=== PATIENT | male | born 1940 | race Caucasian/White ===

== ENCOUNTER 2020-08-06 11:11 | Emergency (ER) | payer MEDICARE, BC ==
[2020-08-06] MEDS ORDERED: Ondansetron PF 4 MG/2 ML Vial ONE (11:36)
== END 2020-08-06 13:07 | disposition home or self-care (01) ==
LOC: ERS 11:11
DX: T18.8XXA Foreign body in other parts of alimentary tract, initial encounter (principal); E78.5 Hyperlipidemia, unspecified; I10 Essential (primary) hypertension; Z79.82 Long term (current) use of aspirin; Z79.899 Other long term (current) drug therapy
CPT/HCPCS: 96374; 96375; 99283; J1610; J2405

== ENCOUNTER 2022-04-07 05:23 | Inpatient (IN) | payer MEDICARE, BC ==
[2022-04-07] MEDS ORDERED: Piperacillin/Tazobactam 3.375 GM VIAL ONE (07:05)
[2022-04-07] MEDS ORDERED: Morphine 2 MG/ML VIAL SLOW IVP PRN (10:44)
[2022-04-07] MEDS ORDERED: hydrALAZINE 20 MG/ML VIAL SLOW IVP PRN (10:44)
[2022-04-07] MEDS ORDERED: Sodium Chloride 0.9% 1,000 ML IV SCH ×3 (10:45→11:00)
[2022-04-07 13:50] LABS: SARS-CoV-2 NAA Rapid Test Not Detected (NotDetected)
[2022-04-07 17:32] VITALS: BMI 28.2
[2022-04-07] MEDS: Sodium Chloride 0.9% 1,000 ML IV SCH ×2 (20:14→21:24)
[2022-04-07] MEDS: Piperacillin/Tazobactam 3.375 GM in Sodium Chloride 0.9% 100 ML IVPB SCH ×2 (20:14→21:25)
[2022-04-07] MEDS ORDERED: Enoxaparin Sodium 40 MG/0.4 ML SYRINGE SC SCH (21:00)
[2022-04-08] MEDS: Sodium Chloride 0.9% 1,000 ML IV SCH ×2 (02:34→08:57)
[2022-04-08] MEDS: Piperacillin/Tazobactam 3.375 GM in Sodium Chloride 0.9% 100 ML IVPB SCH (03:44)
[2022-04-08 06:11] VITALS: TEMP 98
[2022-04-08 06:33] LABS: #Eosinphils 0.6 thou/uL (0.0-0.7); #Lymphocytes 2.2 thou/uL (1.20-3.40); #Monocytes 0.6 thou/uL (0.11-0.59); #Neutrophils 4.1 thou/uL (1.40-6.50); %Basophils 0.3 % (0.0-1.0); %Eosinophils 8.1 % (0.0-10.0); %Lymphocytes 28.9 % (21.0-51.0); %Monocytes 8.3 % (0.0-10.0); %Neutrophils 54.4 % (42.0-75.0); Mean Corpuscular HGB CONC 33.2 g/dL (32.0-36.0); Mean Corpuscular Hemoglobin 32.7 pg (27.0-31.0); Mean Corpuscular Volume 98.6 fL (78.0-98.0); Mean Platelet Volume 8.6 fL (7.4-10.4); Platelet Count 141 thou/uL (130-400); RBC Distribution Width 11.2 % (11.5-14.5); Red Blood Cell (RBC) Count 3.98 mill/uL (4.70-6.10); White Blood Cell (WBC) Count 7.5 thou/uL (4.8-10.8)
[2022-04-08 06:58] LABS: ALT (SGPT) 113 U/L (8-55); AST (SGOT) 76 U/L (5-34); Albumin 3.8 g/dL (3.4-4.8); Alkaline Phosphatase 90 U/L (40-110); Anion Gap 12 mmol/L (10-20); BUN (Urea Nitrogen) 13 mg/dL (8.4-25.7); Bilirubin, Total 1.3 mg/dL (0.2-1.2); Calc. Creatinine Clearance 64 mL/min (70-130); Calcium 8.8 mg/dL (7.8-10.44); Carbon Dioxide 26 mmol/L (23-31); Chloride 104 mmol/L (98-107); Glucose 94 mg/dL (83-110); Lipase 47 U/L (8-78); Potassium 3.5 mmol/L (3.5-5.1); Protein, Total 6.8 g/dL (5.8-8.1); Sodium 138 mmol/L (136-145)
[2022-04-08 08:11] VITALS: BP 132/69
[2022-04-08] MEDS ORDERED: Pantoprazole 40 MG VIAL IVP SCH (09:00)
[2022-04-08] MEDS ORDERED: Bupivacaine 0.25% HCL 30 ML VIAL ONE (09:28)
[2022-04-08] MEDS ORDERED: Lidocaine 1% w/Epinephrine 1:100K 30 ML VIAL ONE (09:28)
[2022-04-08] MEDS ORDERED: Iopamidol 15 ML ONE ×2 (09:55→09:56)
[2022-04-08] MEDS ORDERED: fentaNYL Citrate/PF 100 MCG/2 ML SYRINGE ONE (10:12)
[2022-04-08] MEDS ORDERED: Famotidine/PF 20 mg/2ml Vial ONE (10:12)
[2022-04-08] MEDS ORDERED: SUGAMMADEX SODIUM 200 MG/2 ML VIAL ONE (10:12)
[2022-04-08] MEDS ORDERED: PROPOFOL 200 MG/20 ML VIAL ONE (10:23)
[2022-04-08] MEDS ORDERED: Lidocaine 1% PF 5 ML VIAL ONE (10:23)
[2022-04-08] MEDS ORDERED: Rocuronium Bromide 10 MG/ML (10ML VIAL) ONE (10:23)
[2022-04-08] MEDS ORDERED: PHENYLEPHRINE-NS 100 MCG/ML 10 ML SYRINGE ONE (10:23)
[2022-04-08] MEDS ORDERED: Ketorolac Tromethamine 30 MG/ML VIAL ONE (10:23)
[2022-04-08] MEDS ORDERED: Metoclopramide HCl 10 MG/2 ML VIAL ONE (10:23)
[2022-04-08] MEDS ORDERED: Ondansetron PF 4 MG/2 ML Vial ONE (10:23)
[2022-04-08] MEDS ORDERED: Piperacillin/Tazobactam 3.375 GM VIAL ONE (10:57)
[2022-04-08] MEDS ORDERED: Ondansetron HCl/PF 4 MG/2 ML Vial IVP PRN (11:04)
[2022-04-08] MEDS ORDERED: Fentanyl 100 MCG/2 ML VIAL ONE ×3 (11:37→12:21)
[2022-04-08] MEDS ORDERED: traMADol HCl 50 MG TAB PO PRN (11:59)
[2022-04-08] MEDS ORDERED: Ibuprofen 600 MG TAB PO PRN (11:59)
[2022-04-08] MEDS ORDERED: Acetaminophen 500 MG TAB PO PRN (11:59)
== END 2022-04-08 15:42 | disposition home or self-care (01) | DRG 417 ==
LOC: ERS 05:23 → ERHOLD 06:45 → SURG A 16:46 → T4-B 17:02
PROVIDERS: ADMIT Internal Medicine; ATTEND Internal Medicine
PROC: 0FT44ZZ Resection of Gallbladder, Percutaneous Endoscopic Approach (ICD-10-PCS; principal; 2022-04-08)
PROC: BF131ZZ Fluoroscopy of Gallbladder and Bile Ducts using Low Osmolar Contrast (ICD-10-PCS; 2022-04-08)
DX: K80.12 Calculus of gallbladder with acute and chronic cholecystitis without obstruction (principal); K85.10 Biliary acute pancreatitis without necrosis or infection; N17.9 Acute kidney failure, unspecified; Z20.822 Contact with and (suspected) exposure to COVID-19; E78.5 Hyperlipidemia, unspecified; I10 Essential (primary) hypertension; E86.0 Dehydration; R74.8 Abnormal levels of other serum enzymes; Z82.49 Family history of ischemic heart disease and other diseases of the circulatory system; Z98.890 Other specified postprocedural states; Z84.1 Family history of disorders of kidney and ureter; Z82.3 Family history of stroke; Z79.899 Other long term (current) drug therapy; Z79.82 Long term (current) use of aspirin
CPT/HCPCS: 36415; 47532; 76705; 80053; 83690; 85025; 88304; 96361; 96365; 96366; C1713; C9113; J1610; J1885; J2405; J2543; J2704; J2765; J3010; J3490; J7050; Q9967; S0020; S0028; U0002